=== PATIENT | female | born 1940 | race Caucasian/White ===

== ENCOUNTER → 2022-02-24 | Outpatient (CLI) | payer MEDICARE, SELFPAY ==
[2022-02-24 12:00] LABS: Absolute Lymphocyte Count 1.58 X10^3/uL (0.83-4.51); Absolute Neutrophil Count 3.4 X10^3/uL (2.0-7.7); Basophil# 0.07 X10^3/uL; Basophil% 1.1 % (0-1); Eosinophil# 0.15 X10^3/uL; Eosinophils% 2.4 % (0-5); Hematocrit 42.8 % (37-47); Hemoglobin 13.6 g/dL (12.0-15.0); Lymphocyte # 1.58 X10^3/ul (0.83-4.51); Mean Corp Hgb Conc 31.8 g/dL (32-36); Mean Corpuscular Hgb 30.9 pg (27.0-32.0); Mean Corpuscular Volume 97.3 fL (81-99); Mean Platelet Vol. 9.9 fl (6.2-12.0); Monocyte# 1.14 X10^3/uL; Monocyte% 18.1 % (0-10); NRBC Flagged by Analyzer 0 % (0-5); Neutrophil # 3.36 X10^3/uL (2.7-7.7); Neutrophil % 53.2 % (47-70); Platelet Count 209 K/mm3 (150-450); RBC Distribution Width CV 13.9 % (11.6-14.6); White Blood Count 6.3 K/mm3 (4.4-11.0)
[2022-02-28 14:55] LABS: Immunoglobulin E 71 IU/mL (6-495)
[2022-02-28 15:07] LABS: Alternaria tenuis <0.10 kU/L (Class 0); Ash, White <0.10 kU/L (Class 0); Aspergillus fumigatus <0.10 kU/L (Class 0); Bermuda Grass <0.10 kU/L (Class 0); Birch <0.10 kU/L (Class 0); Black Walnut <0.10 kU/L (Class 0); Cat Hair / Dander,Stand <0.10 kU/L (Class 0); Cedar, Mountain <0.10 kU/L (Class 0); Cladosporium herbarum <0.10 kU/L (Class 0); Cockroach, American <0.10 kU/L (Class 0); Cottonwood <0.10 kU/L (Class 0); D farinae Mite <0.10 kU/L (Class 0); D pteronyssinus <0.10 kU/L (Class 0); Dog Epithelia <0.10 kU/L (Class 0); Elm, American White <0.10 kU/L (Class 0); Immunoglobulin E 82 IU/mL (6-495); Maple/Box Elder <0.10 kU/L (Class 0); Mulberry, White <0.10 kU/L (Class 0); Oak, White <0.10 kU/L (Class 0); Pecan <0.10 kU/L (Class 0); Penicillium Notatum <0.10 kU/L (Class 0); Pigweed, Rough <0.10 kU/L (Class 0); Ragweed, Short/Common <0.10 kU/L (Class 0); Russian Thistle <0.10 kU/L (Class 0); Sheep Sorrel <0.10 kU/L (Class 0); Sycamore, American <0.10 kU/L (Class 0); Timothy Grass <0.10 kU/L (Class 0)
[2022-03-02 11:11] LABS: Mouse Urine <0.10 kU/L (Class 0)
== END | disposition home or self-care (01) ==
LOC: PAVLAB 11:21
PROVIDERS: PCP Physician Assistant Medical; Referring Provider Internal Medicine; Visit Provider Internal Medicine
DX: J30.9 Allergic rhinitis, unspecified (principal)
CPT/HCPCS: 36415; 82785; 85025; 86003

== ENCOUNTER → 2022-02-25 | Outpatient (CLI) | payer MEDICARE, SELFPAY ==
--- NOTE | 2022-02-26 10:40 | PFT_ITS ---
INTRODUCTION: The patient is an 81-year-old female that presents for pulmonary function studies secondary to a diagnosis of asthma. Respiratory therapy reported good patient effort. Bronchodilators were used during testing. INTERPRETATION: Forced expiration spirometry demonstrates no evidence of a large airways obstructive ventilatory defect. There was no significant response to aerosolized bronchodilators. Spirograms are of good quality and plateau normally. Body plethysmography was performed and revealed a decreased TLC to 3 L, 77% of predicted, indicative of a mild restrictive ventilatory impairment. Diffusing capacity by single breath CO was within normal limits. IMPRESSION: Isolated mild restrictive ventilatory impairment with preserved diffusing capaci ty.
== END | disposition home or self-care (01) ==
LOC: PSN 08:36
PROVIDERS: PCP Physician Assistant Medical; Referring Provider Internal Medicine; Visit Provider Internal Medicine
DX: J45.909 Unspecified asthma, uncomplicated (principal)
CPT/HCPCS: 94060; 94726; 94729

== ENCOUNTER → 2022-04-15 | Outpatient (CLI) | payer MEDICARE, SELFPAY | END | disposition home or self-care (01) | PROVIDERS: PCP Physician Assistant Medical; Visit Provider Internal Medicine | DX: G47.33 Obstructive sleep apnea (adult) (pediatric) (principal) | CPT/HCPCS: 95810 ==

== ENCOUNTER → 2022-04-19 | Outpatient (CLI) | payer MEDICARE, SELFPAY ==
--- NOTE | 2022-04-21 10:14 | BRONCHALL ---
Bronchoprovocation Challenge Bronchoprovocation Challenge Bronchoprovocation Challenge: INTRODUCTION: The patient is a 81-year-old female who presents for a bronchoprovocation challenge secondary to a diagnosis of asthma. The respiratory therapist reported good patient effort and reproducible results. INTERPRETATION: Initial spirometry did not show any large airways obstructive ventilatory defect with preserved airflows throughout. The patient was then given progressively increasing doses of methacholine in a standardized fashion. At no point during testing did the patient's FEV1 drop to the threshold criteria to be considered a positive test. IMPRESSION: Negative methacholine inhalation challenge.
== END | disposition home or self-care (01) ==
PROVIDERS: PCP Physician Assistant Medical; Referring Provider Internal Medicine; Visit Provider Internal Medicine
DX: J45.909 Unspecified asthma, uncomplicated (principal)
CPT/HCPCS: 94070; 95070; J3490; J7674

== ENCOUNTER 2023-06-06 07:34 | Emergency (ER) | payer MEDICARE, SELFPAY ==
[2023-06-06 07:35] VITALS: BP 142/74; PULSE 82; RESP 16; TEMP 36.4; O2SAT 99; BMI 32.9
--- NOTE | 2023-06-06 07:46 | RAD_ITS ---
STUDY: X-RAY - RIGHT KNEE REASON FOR EXAM: Female, 83 years old. Injury. TECHNIQUE: 4 views of the right knee. COMPARISON: None. FINDINGS: There is a right total knee arthroplasty with patellar resurfacing. The orthopedic hardware components are intact. There is no periprosthetic fracture. There is a moderate knee joint effusion. Normal proximal tibiofibular articulation. There are atherosclerotic calcifications. RAD/Knee 4 or More Views IMPRESSION: Right total knee arthroplasty with no periprosthetic fracture. Moderate joint effusion. Electronically Signed: Bhanu Mcbride MD at 8:24 EDT ,
--- NOTE | 2023-06-06 07:47 | EDS_ITS ---
HPI History of Present Illness Chief Complaint: Lower Extremity Injury Detail of Chief Complaint: Injury to right knee Informant: patient Narrative Narrative: Patient presents to the emergency department complaint of injury to the right knee that occurred last evening around 7 PM. Patient states that she has 2 dogs that were roughhousing and they ran into the side of her right knee. She is complaining of pain to the medial aspect of the knee with walking. She is able to bear some weight. Patient did not actually fall. She did not hit her head. She is on Eliquis for history of A-fib. Patient states that the right knee has been replaced in 2017 and she would have come in other than the fact that she had a knee replacement and became concerned. [facility] Medical History (Updated 06/06/23 @ 08:[address] Manav Hilton DO) Afib Allergic rhinitis due to allergen Asthma IZABELLA on CPAP Perennial non-allergic rhinitis Home Medications albuterol sulfate 90 mcg/actuation aerosol inhaler 2 puff inhalation Q6H PRN 02/24/22 [History Last Taken Unknown] apixaban 5 mg tablet (Eliquis) 5 mg PO BID 02/24/22 [History Last Taken Unknown] calcium carbonate (Calcium 500) 500 mg PO DAILY 02/24/22 [History Last Taken Unknown] cholecalciferol (vitamin D3) 10 mcg (400 unit) capsule 10 mcg PO .QOD 02/24/22 [History Last Taken Unknown] lisinopril 20 mg tablet 20 mg PO DAILY 02/24/22 [History Last Taken Unknown] montelukast 10 mg tablet 10 mg PO DAILY 02/24/22 [History Last Taken Unknown] multivitamin (Daily Multi-Vitamin tablet) 1 tab PO DAILY 02/24/22 [History Last Taken Unknown] omega 6-gcn-vzz-fish oil 300 mg-1,000 mg capsule (Fish Oil) 1 cap PO BID 02/24/22 [History Last Taken Unknown] rosuvastatin 10 mg tablet 10 mg PO DAILY 02/24/22 [History Last Taken Unknown] sotalol 80 mg tablet 80 mg PO BID 02/24/22 [History Last Taken Unknown] azelastine 137 mcg (0.1 %) nasal spray aerosol 1 spray intranasal Q12H rhinitis #30 mL 05/19/22 [Rx Last Taken Unknown] Allergy/AdvReac Type Severity Reaction Status Date / Time bee venom protein (honey bee) Allergy Intermediate Anaphylaxis Verified 06/06/23 07:35 penicillin G Allergy Mild Rash Verified 06/06/23 07:35 Sulfa (Sulfonamide Allergy Mild Rash Verified 06/06/23 07:35 Antibiotics) fenofibrate AdvReac Severe Other Verified 06/06/23 07:35 levofloxacin [From Levaquin] AdvReac Severe Anaphylaxis Verified 06/06/23 07:35 prednisone AdvReac Intermediate insomnia Verified 06/06/23 07:35 [id number] Reductase AdvReac Intermediate Other Verified 06/06/23 07:35 Inhibitor furosemide [From Lasix] AdvReac Mild Rash Verified 06/06/23 07:35 Surgical History (Updated 06/06/23 @ 07:55 by Henrietta Cintron) History of right knee joint replacement ROS ROS ED Review of Systems ROS Unobtainable: other Constitutional Constitutional ED: Reports lethargy; Denies chills, fever(s), sweats or weight loss Eyes Eyes: Denies blurry vision, change in vision or diplopia ENT ENT ED: Denies rhinorrhea or sore throat Cardiovascular Cardiovascular: Denies chest pain, orthopnea or racing heartbeat Respiratory/Chest Respiratory/Chest: Denies cough, dyspnea, dyspnea on exertion, orthopnea or sputum Gastrointestinal Gastrointestinal: Denies abdominal pain, diarrhea, nausea or vomiting Genitourinary Genitourinary ED: Denies dysuria, hematuria or urinary frequency Musculoskeletal Musculoskeletal: Reports other Details: Right knee pain/injury ; Denies arthralgias, back pain, myalgias or neck pain Integumentary Denies abscess, Abrasions or rash Neurologic Neurologic: Denies headache(s) or weakness Psychiatric Psychiatric: Denies anxiety, depression or suicidal thoughts Endocrine Endocrinology: Denies polydipsia, polyphagia or polyuria Hematologic/Lymphatic Hematologic/Lymphatic: Denies easy bleeding, easy bruising or lymphadenopathy Allergic/Immunologic Allergic/Immunologic ED: Denies mouth swelling, tongue swelling or urticaria EXAM Physical Exam Const Vital Signs: 06/06/23 07:35 Temperature 97.5 F L Temperature Source Temporal Pulse Rate 82 Respiratory Rate 16 Blood Pressure 142/74 H Blood Pressure Mean 96 Pulse Ox 99 Oxygen Delivery Method Room Air Positive well nourished and well developed General Appearance ED: well developed and NAD HEENT Reports TM's clear and moist mucous membranes normocephalic and atraumatic; Negative for trauma or tenderness Tympanic Membrane ED: Yes TM's clear Eyes PERRL and EOMs intact bilaterally General Eye ED: Negative for pale conjunctiva or scleral icterus Neck no lymphadenopathy, supple and no JVD General: Negative for tenderness Chest Wall inspection of chest normal and palpation of chest normal Chest: Negative for tenderness Resp normal respiratory effort and clear to auscultation bilaterally Effort and Inspection: Negative for respiratory distress or pain with movement Auscultation: Negative for rhonchi, wheezes or diminished lung sounds Cardio regular rate, regular rhythm, S1 normal heart sound, S2 normal heart sound and no murmurs Peripheral Pulses: pulses 2+ throughout GI normal to inspection, nondistended, normoactive bowel sounds, soft to palpation, non-tender, non-distended and no masses Back/Spine no CVA tenderness and no thoracic nor lumbar tenderness Extremity Extremity Narrative: Right knee-mild diffuse soft tissue swelling. Tenderness palpation over the medial joint line. Limited range of motion in flexion secondary to pain. Neurovascular intact distally. There are some slight ligamentous laxity over the medial joint line on stress testing. Negative anterior posterior drawer test. General Extremety ED: Negative for edema General Extremity: Negative for edema Neuro oriented x3, CN's II-XII intact bilaterally, no sensory deficits noted and gait normal Sensorium / Orientation: awake, alert, oriented to person, oriented to place and oriented to time Motor Exam: strength 5/5 throughout and strength abnormal Psych mental status grossly normal Skin no rashes or lesions noted and no wounds MDM MDM MDM Narrative Medical decision making narrative: Patient presents with right knee injury that occurred yesterday. Tender medial joint line and I suspect some laxity over the medial collateral ligament. Clinically I suspect injury to the medial collateral ligament. X-rays negative. Will place in a knee immobilizer. Will refer to orthopedics for follow-up. Patient has a cane that she can use. She does not anything for pain for home. Radiography Diagnostic Testing: Clinical Impression(s) from Imaging Studies Knee X-Ray 06/06/23 07:46 IMPRESSION: Right total knee arthroplasty with no periprosthetic fracture. Moderate joint effusion. Electronically Signed: Bhanu Mcbride MD at 8:24 EDT , 4 view x-rays of the right knee obtained interpreted by myself as no evidence of fracture or dislocation. Radiology was in agreement noted right total knee arthroplasty with no periprosthetic fracture. She had a moderate joint effusion. Discharge Plan Triage Chief Complaint: Lower Extremity Injury ED Provider: Manav Hilton Dx/Rx/DC Orders Clinical Impression: Right knee sprain, Knee MCL sprain Instructions: ED Knee Sprain, ED Knee Sprain Ligaments Prescriptions: No Action rosuvastatin 10 mg tablet 10 mg PO DAILY sotalol 80 mg tablet 80 mg PO BID Eliquis 5 mg tablet 5 mg PO BID lisinopril 20 mg tablet 20 mg PO DAILY montelukast 10 mg tablet 10 mg PO DAILY omega 7-pyo-xta-fish oil [Fish Oil] 300-1,000 mg capsule 1 cap PO BID calcium carbonate [Calcium 500] 500 mg calcium (1,250 mg) tablet,chewable 500 mg PO DAILY cholecalciferol (vitamin D3) 10 mcg (400 unit) capsule 10 mcg PO .QOD multivitamin [Daily Multi-Vitamin] Tablet 1 tab PO DAILY albuterol sulfate 90 mcg/actuation HFA aerosol inhaler 2 puff inhalation Q6H PRN azelastine 137 mcg (0.1 %) aerosol,spray 1 spray intranasal Q12H Qty: 30 3RF Rx Instructions: administer into each nostril, 1-2 times daily Primary Care Provider: Brandie Bennett Referrals: Konrad Lozada DO [Med Staff - Active Staff] - 3-5 Days Brandie Bennett PA [Primary Care Provider] - Disposition Disposition: Home, Self Care
[2023-06-06 08:58] VITALS: BP 142/74; PULSE 82; RESP 16; TEMP 36.4; O2SAT 99
== END 2023-06-06 08:59 | disposition home or self-care (01) ==
PROVIDERS: Emergency Provider Emergency Medicine; PCP Physician Assistant Medical; Visit Provider Emergency Medicine
DX: S83.411A Sprain of medial collateral ligament of right knee, initial encounter (principal); I48.91 Unspecified atrial fibrillation; W54.1XXA Struck by dog, initial encounter; Z79.01 Long term (current) use of anticoagulants; G47.33 Obstructive sleep apnea (adult) (pediatric); Z99.89 Dependence on other enabling machines and devices; Z96.651 Presence of right artificial knee joint
CPT/HCPCS: 73564; 99283